=== PATIENT | male | born 1980 | race Caucasian/White ===

== ENCOUNTER 2020-05-12 14:00 | Emergency (ER) | payer OTHER ==
[~2020-05-12] VITALS: Ht 170.2 cm; Wt 75.0 kg
[~2020-05-12 14:00] MED LIST: PERCOCET 5/325M1 TAB PO
[2020-05-12] MEDS ORDERED: ISENTRESS400 MG PO (14:25)
[2020-05-12] MEDS ORDERED: COMBIVIR 1501 COMBO PO (14:25)
[2020-05-12 14:48] LABS: HEMATOCRIT 40.2 % (39.0-50.0); HEMOGLOBIN 13.7 g/dl (14.0-18.0); IMMATURE GRANULOCYTES 0.5 % (0.0-5.0); MEAN CELL VOLUME 94.8 fL CALC (80.0-100.0); MEAN CORPUSCULAR HGB 32.3 pG CALC (26.0-32.0); MEAN CORPUSCULAR HGB CONC 34.1 g/dL CAL (32.0-36.0); NEUT# 4.33 thou/uL (1.82-7.42); RED BLOOD COUNT 4.24 mill/uL (4.70-6.10); RED CELL DISTRI WIDTH 11.6 % (11.5-15.5)
[2020-05-12 15:03] LABS: ALBUMIN 4.7 g/dL (3.2-5.0); ALKALINE PHOSPHATASE 84 u/l (38-126); ANION GAP 15 (6-22 (CALC)); BILIRUBIN, TOTAL 0.7 mg/dL (0.0-1.4); BUN 18 mg/dL (9-20); BUN/CREATININE RATIO 14 (12-20 (CALC)); CARBON DIOXIDE 24 mmol/l (22-30); CHLORIDE 104 mmol/l (95-108); CREATININE 1.3 mg/dL (0.7-1.3); GFR > 60 ML/MIN (>=60 (CALC)); GFR FOR AFR.AMER. > 60 ML/MIN (>=60 (CALC)); SGOT/AST 23 u/l (17-59); SODIUM 140 mmol/l (137-146); TOTAL PROTEIN 7.6 g/dL (6.3-8.2)
[2020-05-12 15:20] VITALS: BP 140/76
[2020-05-12] MEDS ORDERED: CEPHALEXIN500 M1 PO (15:26)
== END 2020-05-12 15:20 | disposition home or self-care (01) | DRG 605 ==
LOC: ED 14:00
PROVIDERS: Family Medicine
DX: S60.512A Abrasion of left hand, initial encounter (principal); W25.XXXA Contact with sharp glass, initial encounter; Y93.89 Activity, other specified; Y99.0 Civilian activity done for income or pay; Z77.21 Contact with and (suspected) exposure to potentially hazardous body fluids